=== PATIENT | male | born 1955 | race Caucasian/White ===

== ENCOUNTER → 2018-02-10 | Outpatient (CLI) | payer OTHER ==
[~2018-02-10] MED LIST: GERI-DRYL25 M1 PO; LO-DOSE ASPIRIN81 M2 PO; OXYCODONE HCL15 MG PO; VITAMIN B-COMP1 EACH PO; VITAMIN D31000 UNIT PO; ZOVIRAX400 MG PO
== END | disposition home or self-care (01) ==
LOC: NUC 10:16
DX: N28.89 Other specified disorders of kidney and ureter (principal); R94.4 Abnormal results of kidney function studies
CPT/HCPCS: 78709; A9562; J1940